=== PATIENT | female | born 1965 ===

== ENCOUNTER → 2019-01-12 21:15 | Outpatient (ROUT) | payer MEDICARE, SELFPAY ==
[2019-01-12 21:43] LABS: Add Manual Diff / Slide Review NO; Basophils Absolute Auto 0 /uL (0-100); Basophils Percent Auto 0.7 % (0-2); Eosinophils Absolute Auto 300 /uL (0-450); Eosinophils Percent Auto 4.4 % (2-4); Hemoglobin 13.1 g/dL (12.0-16.0); Lymphocytes Absolute Auto 1700 /uL (1100-4500); Lymphocytes Percent Auto 30.8 % (25-40); Mean Corpuscular HGB Conc 34.4 % (30-36); Mean Corpuscular Hemoglobin 30.1 PG (26-34); Mean Corpuscular Volume 87.4 fL (80-100); Monocytes Absolute Auto 400 /uL (0-900); Monocytes Percent Auto 7.7 % (3-14); Neutrophils Absolute Auto 3200 /uL (1500-7000); Neutrophils Percent Auto 56.4 % (50-75); Platelet Count 214 X10^3/uL (150-400); Red Blood Cell Count 4.35 X10^6/uL (4.0-5.2); Red Cell Distribution Width 12.5 % (11.6-14.8); White Blood Cell Count 5.6 X10^3/uL (4.5-11.0)
[2019-01-12 22:06] LABS: BUN Creatinine Ratio 18.3 (6-22); Blood Urea Nitrogen 11 mg/dL (7-17); Calcium 9.4 mg/dL (8.4-10.2); Carbon Dioxide 30 mmol/L (22-32); Chloride 96 mmol/L (98-107); Estimated Glomerular Filt Rate > 60.0 mL/min (>60); Glucose 83 mg/dL (70-100); HEMOLYSIS < 15 (0-50); Potassium 4.1 mmol/L (3.4-5.1); Sodium 134 mmol/L (137-145)
[2019-01-12 22:32] LABS: Erythrocyte Sedimentation Rate 3 MM/HR (0-20)
== END ==
PROVIDERS: Visit Provider Family Medicine
DX: R78.5 Finding of other psychotropic drug in blood (principal); R73.9 Hyperglycemia, unspecified
CPT/HCPCS: 36415; 80048; 83036; 85025; 85651